=== PATIENT | male | born 1965 | race Two or more races ===

== ENCOUNTER 2017-07-18 07:43 | Emergency (ER) | payer MEDICAID ==
[~2017-07-18] VITALS: Wt 88.0 kg
[~2017-07-18 07:43] MED LIST: ANUHCSUP RC; ATA25 PO
[2017-07-18] MEDS ORDERED: IBUP-1542 PO (08:15)
[2017-07-18] MEDS ORDERED: CYCL5TAB PO (08:15)
[2017-07-18] MEDS ORDERED: IBUPROFEN 600 MG TAB PO ONE (08:30)
--- NOTE | 2017-07-18 09:14 | ERD ---
ER Documentation Chief Complaint Date/Time DATE: 07/18/17 TIME: 09:12 Chief Complaint LOW BACK PAIN AFTER LIFTING HEAVY STUFF YESTERDAY HPI 52-year-old male otherwise healthy presents with diffuse lower back achy pain after lifting a heavy bucket last night. He states that he was cleaning out his garage, lifted it straight up, and since then has been having diffuse pain. Pain is moderate, worse with walking, better with sitting. He denies saddle anesthesia loss of bowel bladder function. He has not tried anything for pain so far. ROS All systems reviewed and are negative except as per history of present illness. Medications Home Meds Active Scripts Cyclobenzaprine Hcl* (Cyclobenzaprine Hcl*) 5 Mg Tablet, 5 MG PO Q8H Y for PAIN , #15 TAB Prov:LILIAN KUMAR PA-C 07/18/17 Ibuprofen* (Motrin*) 600 Mg Tab, 600 MG PO Q6, #30 TAB Prov:LILIAN KUMAR PA-C 07/18/17 Reported Medications Hydroxyzine Hcl* (Atarax*) 25 Mg Tab, 25 MG PO TID 10/10/11 Hydrocortisone* Rectal (Anucort-HC* Supp) 25 Mg Supp, 25 MG RC DAILY 10/10/11 Allergies Allergies: Coded Allergies: No Known Allergy (Unverified , 07/18/17) PMhx/Soc Medical and Surgical Hx: pt denies Medical Hx, pt denies Surgical Hx History of Surgery: No Anesthesia Reaction: No Hx Neurological Disorder: No Hx Respiratory Disorders: No Hx Cardiac Disorders: No Hx Psychiatric Problems: No Hx Miscellaneous Medical Probl: No Hx Alcohol Use: No Hx Substance Use: No Hx Tobacco Use: No Smoking Status: Never smoker Physical Exam Vitals Vital Signs Date Time Temp Pulse Resp B/P Pulse Ox O2 Delivery O2 Flow Rate FiO2 07/18/17 07:49 98.1 76 18 131/73 97 Physical Exam General: Well-developed, well-nourished. The patient appears in no acute distress. HEENT: Head is normocephalic, atraumatic. No scleral icterus Neck: Supple. Nontender. Lungs: Clear to auscultation. Normal air movement. Heart: Regular rate and rhythm. S1 and S2 are normal. No murmurs, gallops, or rubs. Abdomen: Soft, nontender, nondistended. Bowel sounds are normoactive. Back: Diffuse lumbar paraspinal pain, no midline tenderness or crepitus. Patient is ambulatory normal strength to his lower extremities. Extremities: No clubbing or cyanosis. Normal pulses. Moving extremities x 4. No weakness. Neurologic: Alert and oriented 3. No focal deficits. Skin: Normal turgor. No rash or lesions. Results 24 hrs Current Medications Medications (Trade) Dose Ordered Sig/Helio Route PRN Reason Start Time Stop Time Status Last Admin Dose Admin Ibuprofen (Motrin) 600 mg ONCE ONCE PO 07/18/17 08:30 07/18/17 08:31 DC 07/18/17 08:18 Procedures/MDM Medical decision makin-year-old male comes in with lower back pain, consistent with a lumbar strain. Patient's examination shows paraspinal tenderness without signs of a fracture, cauda equina neurovascular injury. His history indicates that he was lifting, causing a strain in the lumbar region, And the patient does not warrant any radiographic imaging based on the patient' s examination and history. Departure Diagnosis: Primary Impression: Injury of back Condition: Good Patient Instructions: Back Sprain/Strain Additional Instructions: Llame al doctor MAANA y glenn finn ALEM PARA DENTRO DE 1-2 MOLINA.Dgale a la secretaria que nosotros le instruimos hacer esta alem.Avise o llame si magdaleno condicin se empeora antes de la alem. Regresa aqui si peor o no mejor. LILIAN KUMAR PA-C Jul 18, 2017 09:14
== END 2017-07-18 08:28 | disposition home or self-care (01) ==
LOC: FTE 07:43
DX: S39.92XA Unspecified injury of lower back, initial encounter (principal); X50.0XXA Overexertion from strenuous movement or load, initial encounter; Y92.9 Unspecified place or not applicable
CPT/HCPCS: Z7502; Z7610; 99283